=== PATIENT | male | born 1985 | race Caucasian/White ===

== ENCOUNTER 2016-09-05 05:16 | Observation (INO) | payer OTHER ==
[2016-09-05] VITALS (9 sets, daily range): BP systolic 117–139; BP diastolic 17–94
[~2016-09-05] VITALS: Ht 190.5 cm; Wt 95.3 kg
[~2016-09-05 05:16] MED LIST: MULTIVITAMINS1 EAC2 ORAL; TYLENOL EXTRA500 MG ORAL
[2016-09-05] MEDS ORDERED: Bupivacaine w/Epi 0.5% 30ml Vial INJ ONE (06:42)
[2016-09-05] MEDS ORDERED: Lacri-Lube Opth Oint 3.5gm ONE (06:42)
[2016-09-05] MEDS ORDERED: Vancomycin 1gm inj IVPB ONE (06:44)
[2016-09-05] MEDS ORDERED: LORazepam 0.5mg tab ORAL PRN (06:45)
[2016-09-05] MEDS ORDERED: Norco 10mg/325mg tab ORAL PRN (06:45)
[2016-09-05] MEDS: Thrombin 5000 units TOPIC ONE ×2 (06:45→08:14)
[2016-09-05] MEDS ORDERED: HYDROmorphone 1mg/ml Carpuject SUBQ PRN ×2 (06:45→09:00)
[2016-09-05] MEDS: Bacitracin 50000 Units Vial ONE ×2 (06:45→08:14)
--- NOTE | 2016-09-05 06:55 | Anethesia Preoperative Eval ---
Anesthesia Pre-op PMH/ROS General Date of Evaluation: Sep 05, 2016 Time of Evaluation: 07:11 Anesthesiologist: Yoel ASA Score: ASA 2 Mallampati Score Class I : Soft palate, uvula, fauces, pillars visible Class II: Soft palate, uvula, fauces visible Class III: Soft palate, base of uvula visible Class IV: Only hard plate visible Mallampati Classification: Class II Surgeon: Tim Surgical Procedure: L5-S1 Microdiscectomy Social History: current smoker Family History: no anesthesia problems Allergies: Coded Allergies: No Known Allergies (Unverified , 09/04/16) Medications: see eMAR Past Medical History Pulmonary: Reports: other - Smokes Cigarettes, Teja PSx Narrative: R Knee ACL Anesthesia Pre-op Phys. Exam Physician Exam Last Vital Signs Date Time Temp Pulse Resp B/P Pulse Ox O2 Delivery O2 Flow Rate FiO2 09/05/16 05:47 98.1 78 20 122/77 97 Room Air Constitutional: NAD Neurologic: CN 2-12 intact Cardiovascular: RRR Respiratory: CTA Gastrointestinal: S/NT/ND Airway Exam Mallampati Score: Class II MO: full ROM: full Teeth: intact Anesthesia Pre-op A/P Risk Assessment & Plan Assessment: ASA 2 Plan: GA, BIS, Glidescope Pre-Antibiotics Dru Grams Ancef IV Given Within 1 Hr of Incision: Yes Time Given: 07:31 Angel Diallo MD Sep 05, 2016 06:55
[2016-09-05] MEDS ORDERED: LR 1000ml 1,000 ML IVLG SCH (06:56)
--- NOTE | 2016-09-05 06:58 | Immediate Post-Op Evaluation ---
Immediate Post-Op Evalulation Immediate Post-Op Evalulation Procedure: L5-S1 Microdiscectomy Date of Evaluation: Sep 05, 2016 Time of Evaluation: 07:40 IV Fluids: 950 LR Blood Products: 0 Estimated Blood Loss: 15 Urinary Output: 0 Blood Pressure Systolic: 129 Blood Pressure Diastolic: 94 Pulse Rate: 65 Respiratory Rate: 16 O2 Sat by Pulse Oximetry: 100 Temperature (Fahrenheit): 97.2 Pain Score (1-10): 3 Nausea: No Vomiting: No Complications 0 Patient Status: awake, reacts, patent, extubated, none Hydration Status: adequate Dru Grams Ancef IV Given Within 1 Hr of Incision: Yes Time Given: 07:31 Angel Diallo MD Sep 05, 2016 06:58
--- NOTE | 2016-09-05 06:59 | 48 Hour Post Anesthesia Eval ---
Post Anesthesia Evaluation Procedure: L5-S1 Microdiscectomy Date of Evaluation: Sep 05, 2016 Time of Evaluation: 11:47 Blood Pressure Systolic: 124 0: 83 Pulse Rate: 78 Respiratory Rate: 18 Temperature (Fahrenheit): 98.2 O2 Sat by Pulse Oximetry: 100 Airway: patent Nausea: No Vomiting: No Pain Intensity: 3 Hydration Status: adequate Cardiopulmonary Status: Stable Mental Status/LOC: patient returned to baseline Follow-up Care/Observations: 0 Post-Anesthesia Complications: 0 Follow-up care needed: N/A Angel Diallo MD Sep 05, 2016 06:59
[2016-09-05] MEDS ORDERED: Zemuron 50mg/5ml Inj IV ONE (07:00)
[2016-09-05] MEDS ORDERED: Norco 5mg/325mg tab ORAL PRN ×2 (07:00→09:00)
[2016-09-05] MEDS ORDERED: Glycopyrrolate 0.2mg/ml 1ml Vial ONE (07:00)
[2016-09-05] MEDS ORDERED: Norco 7.5mg/325mg tab ORAL PRN ×3 (07:00→09:00)
[2016-09-05] MEDS ORDERED: fentaNYL 100 mcg/2 mL IV PRN (07:00)
[2016-09-05] MEDS ORDERED: Oxycodone/Acetaminophen 5-325 ORAL PRN (07:00)
[2016-09-05] MEDS ORDERED: Sterile Water Irrig 1000ml IRRIG ONE (07:00)
[2016-09-05] MEDS ORDERED: Metoclopramide 10mg/2ml Inj IVP PRN (07:00)
[2016-09-05] MEDS ORDERED: Hydromorphone 0.5mg/0.5ml inj IVP PRN (07:00)
[2016-09-05] MEDS ORDERED: Labetalol 5mg/ml 20ml vial IV ONE ×2 (07:00)
[2016-09-05] MEDS ORDERED: Midazolam 2mg/2ml Inj IVP PRN (07:00)
[2016-09-05] MEDS ORDERED: Atropine Inj 1mg/10ml Syr IV PRN (07:00)
[2016-09-05] MEDS ORDERED: Propofol 10mg/ml 100ml btl IV ONE (07:00)
[2016-09-05] MEDS ORDERED: Dexamethasone 4mg/ml vial ONE (07:00)
[2016-09-05] MEDS ORDERED: LR 1000ml ONE (07:00)
[2016-09-05] MEDS ORDERED: Ketorolac 60mg Inj IV PRN (07:00)
[2016-09-05] MEDS ORDERED: Meperidine 25mg/ml Inj IV PRN (07:00)
[2016-09-05] MEDS ORDERED: LORazepam Inj 2mg/ml 1ml IV PRN (07:00)
[2016-09-05] MEDS ORDERED: fentaNYL 250mcg/5ml ONE (07:00)
[2016-09-05] MEDS ORDERED: DiphenhydrAMINE 50mg/ml Inj IVP PRN (07:00)
[2016-09-05] MEDS ORDERED: fentaNYL 100 mcg/2 mL IV ONE (07:00)
[2016-09-05] MEDS ORDERED: Ketorolac 30mg Inj IV PRN (07:00)
[2016-09-05] MEDS ORDERED: ceFAZolin sod 1 GM in NS 55 ML IVPB ONE (07:00)
[2016-09-05] MEDS ORDERED: Dexamethasone 20mg/5ml IVP ONE (07:00)
[2016-09-05] MEDS ORDERED: Neostigmine 1mg/ml 10ml Inj ONE (07:00)
[2016-09-05] MEDS ORDERED: Labetalol 5mg/ml 20ml vial IV PRN (07:00)
[2016-09-05] MEDS ORDERED: NS Irrig 1000ml ONE ×2 (07:00→13:29)
[2016-09-05] MEDS ORDERED: Lidocaine 1% MPF 10mg/ml 5ml ONE (07:00)
--- NOTE | 2016-09-05 07:23 | Pre-Procedure Note/Attestation ---
Pre-Procedure Note/Attestation Complete Prior to Procedure Planned Procedure: not applicable Procedure Narrative: L5-S1 microdiscectomy Indications for Procedure Pre-Operative Diagnosis: Post trauma herniated nucleus pulposis Attestation I attest that I discussed the nature of the procedure; its benefits; risks and complications; and alternatives (and the risks and benefits of such alternatives ), prior to the procedure, with the patient (or the patient's legal brewery representative). I attest that, if there was a reasonable possibility of needing a blood transfusion, the patient (or the patient's legal brewery representative) was given the [facility] standardized written summary, pursuant to the [place] Blood Safety Act ([place] Health and Safety Code # 1645, as amended). I attest that I re-evaluated the patient just prior to the surgery and that there has been no change in the patient's H&P, except as documented below: MARY KAUFFMAN Sep 05, 2016 07:23
[2016-09-05] MEDS ORDERED: Surgicel 4in x 8in TOPIC ONE (07:29)
[2016-09-05] MEDS ORDERED: Thrombin 5000 units TOPIC ONE (07:29)
[2016-09-05] MEDS ORDERED: Acetaminophen (Non formulary) 100 ML IV ONE (08:30)
[2016-09-05] MEDS ORDERED: Lidocaine 1% Plain 30 ml INJ ONE (08:50)
--- NOTE | 2016-09-05 08:53 | Brief Operative Note ---
Immediate Post Operative Note Operative Note Pre-op Diagnosis: Post trauma herniated nucleus pulposis Procedure: L5-S1 microdiscectomy Local xray microscope SSEP Post-op Diagnosis: same as pre-op Findings: consistent w/pre-op dx studies Surgeon: Tim [employer] Brake Specialist: Stephanie MO Anesthesiologist: Yoel Anesthesia: general Specimen: none Complications: none Condition: stable Estimated Blood Loss: minimal Drains: none Implant(s) used?: No MARY KAUFFMAN Sep 05, 2016 08:53
[2016-09-05] MEDS ORDERED: traMADol 50mg tab ORAL PRN (09:00)
[2016-09-05] MEDS ORDERED: D5 1/2NS 1000ml IV ONE (13:29)
[2016-09-05] MEDS ORDERED: Dronabinol 2.5mg Cap ORAL SCH (14:00)
[2016-09-05] MEDS ORDERED: D5 1/2NS 1,000 ML IV SCH (14:00)
--- NOTE | 2016-09-05 15:20 | Diagnostic Imaging Report ---
Indications: Low back pain, L5-S1 microdiscectomy Technique: Procedure including fluoroscopy performed by Dr. Dumont. Portable intraoperative lateral spot film images of lower lumbar spine obtained. Findings: Comparison: None Initial image demonstrates needle tip overlying soft tissues posterior to L5. L4-5 and L5-S1 disc spaces are narrowed. Subsequent images demonstrate surgical implement overlying the posterior elements at L5-S1. IMPRESSION: Degenerative in intraoperative changes as described
[2016-09-05] MEDS ORDERED: ceFAZolin sod 1 GM in D5W 55 ML IV SCH (15:30)
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
--- NOTE | 2016-09-05 16:08 | Operative Note - Dictated ---
DATE OF OPERATION: 09/05/2016 SURGEON: Marty Dumont Ph.D. M.D. DESIGNER/WRITER: CHEPE Harris. ANESTHESIOLOGIST: Angel Diallo M.D. ANESTHESIA: General with intubation. ESTIMATED BLOOD LOSS: Minimal. POSTOPERATIVE CONDITION: Good/stable. COMPLICATIONS: None. SPECIMENS: None. PREOPERATIVE DIAGNOSIS: Lumbar herniated nucleus pulposus, L5-S1, posttraumatic. POSTOPERATIVE DIAGNOSIS: Lumbar herniated nucleus pulposus, L5-S1, posttraumatic. OPERATIVE PROCEDURE: 1. L5-S1 microdiscectomy. 2. High-power microscopic dissection. 3. SSEP monitoring. 4. Local anesthetic applied by surgeon. 5. Intraoperative x-rays interpreted by surgeon. DESCRIPTION OF PROCEDURE: The patient was brought to the operating room and in the supine position, general anesthesia with intubation was induced. IV antibiotics and IV Decadron were administered prior to incision time. The patient was positioned in the prone position. Lumbodorsal spine was sterilely prepped. A spinal needle was placed percutaneously in the midline in the subcutaneous tissue and a cross-table radiograph was obtained under sterile conditions demonstrating the correct level for incision placement. Needle was removed. Level sterilely marked. Back resterilely prepped and draped free in the usual sterile fashion. A longitudinal incision centered over the appropriate interval was sharply placed in the dermis and epidermis. Electrocautery dissection was carried through the subcutaneous tissue to the level of lumbodorsal fascia. It was incised left in midline over the respective interval. Marker was placed. Cross-table image obtained under sterile condition, interpreted by surgeon, demonstrating the correct level for further dissection. Level marked, marker removed, and retractors placed. Hemilaminotomy, minimal, left inferior L5 was performed with Midas Zeus bur dissection under high-power magnification. Ligament flavum excised. Dissection was carried lateral to the dural tube to the level of the disk space. Annulotomy performed. Microdiscectomy performed. No dural tears or leaks noted anytime during the procedure. No bleeding from the disc space. The disc space was irrigated with antibiotic-containing saline. FloSeal applied after the interval was irrigated with antibiotic-containing saline. Sequential reapproximation with Vicryl suture material of the lumbodorsal fascia, subcutaneous tissue, dermis, and epidermis. Local anesthetic 1% lidocaine without epinephrine was applied on bilateral lateral aspects of the wound into subcutaneous tissue. Sealant utilized overlying dermis and epidermis, followed with sterile bandage, maintained in place with tape. The patient carefully turned from the prone to supine position on the transport bed where he was awakened and extubated in the operating room, and transported to postop recovery in good stable condition. Mraty Dumont M.D. DR: ALE JOB#: [id number] CC:
== END 2016-09-05 13:30 | disposition home or self-care (01) ==
LOC: SUR 05:16 → 3E 12:18
DX: M51.26 Other intervertebral disc displacement, lumbar region (principal); G89.18 Other acute postprocedural pain; E66.3 Overweight; F17.210 Nicotine dependence, cigarettes, uncomplicated; F12.90 Cannabis use, unspecified, uncomplicated
CPT/HCPCS: 63030; 72020; 76000; G0378; J0690; J1100; J2001; J2250; J2405; J2704; J2710; J3010; J7120; 94003; 94150